=== PATIENT | female | born 1960 | race Caucasian/White ===

== ENCOUNTER 2024-02-22 07:47 | Outpatient (REF) | payer OTHER, SELFPAY ==
--- NOTE | ~2024-02-22 | XR_ITS ---
EXAMINATION: XR BILATERAL KNEES CLINICAL INFORMATION: Pain in bilateral knees. COMPARISON: None available. TECHNIQUE: 3 views of each knee. FINDINGS: RIGHT KNEE: The bones are diffusely demineralized. Marked narrowing of the medial compartment with small marginal osteophytes. Advanced degenerative changes in the patellofemoral joint. Small lateral marginal osteophytes. No significant joint effusion. LEFT KNEE: [id number]-[id number] narrowing of the medial compartment with small marginal osteophytes. Advanced degenerative changes in the patellofemoral joint. Small lateral marginal osteophytes. No significant joint effusion. XR/XR knee LT 3V IMPRESSION: Marked degenerative changes bilateral knees, right greater than left.
--- NOTE | ~2024-02-22 | XR_ITS ---
EXAMINATION: XR BILATERAL KNEES CLINICAL INFORMATION: Pain in bilateral knees. COMPARISON: None available. TECHNIQUE: 3 views of each knee. FINDINGS: RIGHT KNEE: The bones are diffusely demineralized. Marked narrowing of the medial compartment with small marginal osteophytes. Advanced degenerative changes in the patellofemoral joint. Small lateral marginal osteophytes. No significant joint effusion. LEFT KNEE: [id number]-bd-nkshbb narrowing of the medial compartment with small marginal osteophytes. Advanced degenerative changes in the patellofemoral joint. Small lateral marginal osteophytes. No significant joint effusion. XR/XR knee RT 3V IMPRESSION: Marked degenerative changes bilateral knees, right greater than left.
== END 2024-02-22 07:48 | disposition home or self-care (01) ==
LOC: HO.HOSX 07:47
PROVIDERS: Visit Provider Orthopaedic Surgery
DX: M23.8X2 Other internal derangements of left knee (principal); M23.8X1 Other internal derangements of right knee
CPT/HCPCS: 73562; 99202

== ENCOUNTER 2024-02-22 09:44 | Outpatient (AMB) | payer OTHER, SELFPAY ==
--- NOTE | 2024-02-22 10:06 | A.OFFVIS_ITS ---
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 The patient describes her pains as sharp in nature. Her pains have gotten worse over the last 5 years in spite of continued non operative treatments. The patient has had multiple cortisone injections. The most recent set of injections gave her minimal relief. She has also tried Tylenol and anti- inflammatory medicines which gave her no relief. She has done physical therapy exercises which aggravated her pain. Allergies Sulfa (Sulfonamide Antibiotics) Allergy (Mild, Verified 02/22/24 10:12) Rash bactim Allergy (Intermediate, Uncoded 02/22/24 10:12) Rash codine Allergy (Mild, Uncoded 02/22/24 10:12) Nausea and Vomiting Medication List - Last Reconciled 02/23/24 by Isaiah Kellogg MD amlodipine 5 mg PO DAILY hydrochlorothiazide 25 mg PO DAILY sertraline 100 mg PO BID [facility] Surgical History (Updated 02/22/24 @ 10:15 by Mariposa Diaz CMA) H/O myomectomy H/O: hysterectomy History of cholecystectomy Social History (Updated 02/22/24 @ 10:15 by Mariposa Diaz CMA) Patient Tobacco Use Status: Never used Tobacco Current occupational status: employed 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 , 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 Physical Exam Vital Signs: BMI result Body Mass Index 33.3 Const Other: Well-nourished well-developed very friendly female awake alert and oriented x3 in no acute distress Extrem Other: Bilateral lower extremity examination shows good capillary refill, no skin lesions noted, normal sensation light touch Bilateral knee examination shows minimal effusions, palpable crepitus with range of motion, pain with range of motion, no instability Results Reviewed Results Reviewed: X-rays of the patient's bilateral knee show joint space narrowing, subchondral sclerosis, no acute bony abnormalities Assessment & Plan Assessment & Plan (1) Arthritis of left knee: Code(s): M17.12 - Unilateral primary osteoarthritis, left knee Category: Medical (2) Arthritis of right knee: Code(s): M17.11 - Unilateral primary osteoarthritis, right knee Category: Medical Plan Ms. Hyde presents with bilateral knee pains due to degenerative joint disease. I had a lengthy discussion with the patient regarding the treatment options. She wishes to hold off on surgery for as long as possible. I agree with this plan. She has not gotten good relief from cortisone injections in the past. Thus, I will see whether not her insurance company will cover a viscosupplementation injection for both of her knees. I will see her back once the injections are available. Feel free to call me at any time if any questions regarding her orthopedic management arise. Thank you very much for asking me to see this very friendly patient. I spent 22 minutes in reviewing the patient's records and imaging studies, seeing the patient and documenting in the medical record. Orders: Orders XR knee LT 3V 02/22/24 M25.562 - Pain in left knee XR knee RT 3V 02/22/24 M25.561 - Pain in right knee Coding Level of Care Code New Pt Level 2 (66023) Diagnoses Arthritis of left knee M17.12 Arthritis of right knee M17.11
[2024-02-22 10:08] VITALS: BMI 33.3
== END 2024-02-22 10:42 | disposition home or self-care (01) ==
PROVIDERS: PCP Family Medicine; Visit Provider Orthopaedic Surgery
DX: M17.0 Bilateral primary osteoarthritis of knee (principal)
CPT/HCPCS: 99202

== ENCOUNTER 2024-03-07 08:31 | Outpatient (AMB) | payer OTHER, SELFPAY ==
[2024-03-07 08:37] VITALS: BMI 33.3
--- NOTE | 2024-03-07 08:37 | A.OFFVIS_ITS ---
Vital Signs 03/07/24 08:37 Height 5 ft 5 in Weight 200 lb BMI 33.3 Intake Visit Reasons: OV- B/L #1 Euflexxa gel injections Intake Note: Shauna is a 63 year old female who presents with progressively worsening bilateral knee pains. The patient describes her pains as sharp in nature. Her pains have gotten worse over the last 5 years in spite of continued non operative tr eatments. The patient has had multiple cortisone injections. The most recent set of injections gave her minimal relief. She has also tried Tylenol and anti- inflammatory medicines which gave her no relief. She has done physical therapy exercises which aggravated her pain. She wishes hold off on surgery for as long as possible. 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 , 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 Physical Exam Vital Signs: BMI result Body Mass Index 33.3 Const Other: Well-nourished well-developed very friendly female awake alert and oriented x3 in no acute distress Extrem Other: Bilateral lower extremity examination shows good capillary refill, no skin lesions noted, normal sensation light touch Bilateral knee examination shows minimal effusions, palpable crepitus with range of motion, pain with range of motion, no instability Results Reviewed Results Reviewed: X-rays of the patient's bilateral knee show joint space narrowing, subchondral sclerosis, no acute bony abnormalities Assessment & Plan Assessment & Plan (1) Arthritis of left knee: Code(s): M17.12 - Unilateral primary osteoarthritis, left knee Category: Medical (2) Arthritis of right knee: Code(s): M17.11 - Unilateral primary osteoarthritis, right knee Category: Medical Plan Ms. Hyde presents with bilateral knee pains due to degenerative joint disease. I had a lengthy discussion with the patient regarding the treatment options. She wishes to hold off on surgery for as long as possible. I agree with this plan. She has not gotten good relief from cortisone injections in the past. Thus, the risks and benefits of bilateral knee Euflexxa injections were discussed at length with the patient. The patient wished to proceed. She tolerated the injections well. She will continue with her home exercise program. She will follow up next week as scheduled. Feel free to call me at any time should questions regarding her orthopedic management arise. I spent 21 minutes in reviewing the patient's records and imaging studies, seeing the patient and documenting in the medical record. Orders: Orders AMB Joint Injection/Aspiration 03/07/24 M17.12 - Unilateral primary osteoarthritis, left knee AMB Joint Injection/Aspiration 03/07/24 M17.11 - Unilateral primary osteoarthritis, right knee Coding Level of Care Code Est Pt Level 3 (68110) Diagnoses Arthritis of left knee M17.12 Arthritis of right knee M17.11
== END 2024-03-07 09:01 | disposition home or self-care (01) ==
PROVIDERS: PCP Family Medicine; Visit Provider Orthopaedic Surgery
DX: M17.0 Bilateral primary osteoarthritis of knee (principal)
CPT/HCPCS: 20610; 99213

== ENCOUNTER → 2024-03-07 08:31 | Outpatient (BNVA) | payer OTHER, SELFPAY | PROVIDERS: PCP Family Medicine; Visit Provider Orthopaedic Surgery | DX: M17.0 Bilateral primary osteoarthritis of knee (principal) | CPT/HCPCS: 20610; 99212; J7323 ==

== ENCOUNTER 2024-03-15 07:32 | Outpatient (AMB) | payer OTHER, SELFPAY ==
--- NOTE | 2024-03-15 07:41 | MHC.OFFVIS ---
Intake Visit Reasons: OV- B/L #2 Euflexxa gel injections Intake Note: Shauna is a 63 year old female who presents today for her bilateral knee Euflexxa #2. She reports that she has some very mild relief from the 1st set of injections. She continues to take etodolac as needed for her discomfort. 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 , 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 Physical Exam Extrem Other: Bilateral lower extremity examination shows good capillary refill, no skin lesions noted, normal sensation light touch Bilateral knee examination shows minimal effusions, palpable crepitus with range of motion, pain with range of motion, no instability Office Procedures Joint Injection/Drain Joint Injection/Drain Primary Site: left knee Prep: site was prepped using aseptic technique Injected: 20 mg of (Euflexxa viscosupplementation) and 1% plain lidocaine Procedure: The patient tolerated the procedure well Coding 64388 - Large joint Procedure code (CPT) selection complete Joint Injection/Drain Joint Injection/Drain Primary Site: right knee Prep: site was prepped using aseptic technique Injected: 20 mg of (Euflexxa viscosupplementation) and 1% plain lidocaine Procedure: The patient tolerated the procedure well Coding 38515 - Large joint Procedure code (CPT) selection complete Assessment & Plan Assessment & Plan (1) Left knee pain: Code(s): M25.562 - Pain in left knee Category: Medical (2) Arthritis of right knee: Code(s): M17.11 - Unilateral primary osteoarthritis, right knee Category: Medical Plan Ms. Hyde presents with bilateral knee pains due to degenerative joint disease. The risks and benefits of the 2nd set of Euflexxa injections were discussed at length with the patient. The patient wished to proceed. She tolerated the injections well. She will continue with her activity modifications. She will follow-up next week as scheduled. Feel free to call me at any time should questions regarding her orthopedic management arise. Orders: Orders AMB Joint Injection/Aspiration Today M25.562 - Pain in left knee AMB Joint Injection/Aspiration Today M17.11 - Unilateral primary osteoarthritis, right knee Coding Level of Care Code Procedure Only Diagnoses Left knee pain M25.562 Arthritis of right knee M17.11 CPT Codes Coding - 29425 Large joint: 82842 - Large joint ([id number]) Coding - 80174 Large joint: 44257 - Large joint ([id number])
== END 2024-03-15 08:05 | disposition home or self-care (01) ==
PROVIDERS: PCP Family Medicine; Visit Provider Orthopaedic Surgery
DX: M17.0 Bilateral primary osteoarthritis of knee (principal)
CPT/HCPCS: 20610

== ENCOUNTER → 2024-03-15 07:32 | Outpatient (BNVA) | payer OTHER, SELFPAY | PROVIDERS: PCP Family Medicine; Visit Provider Orthopaedic Surgery | DX: M17.0 Bilateral primary osteoarthritis of knee (principal) | CPT/HCPCS: 20610; J7323 ==

== ENCOUNTER 2024-03-21 08:25 | Outpatient (AMB) | payer OTHER, SELFPAY ==
[2024-03-21 08:30] VITALS: BMI 33.3
--- NOTE | 2024-03-21 08:30 | A.OFFVIS_ITS ---
Vital Signs 03/21/24 08:30 Height 5 ft 5 in Weight 200 lb BMI 33.3 Intake Visit Reasons: OV- B/L #3 Euflexxa gel injection Intake Note: Shauna is a 63 year old female who presents for her #3 bilateral knee Euflexxa gel injections. She states that she has gotten mild relief from the prior 2 injections. She denies any fevers or chills. 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 , 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 Physical Exam Vital Signs: BMI result Body Mass Index 33.3 Extrem Other: Bilateral knee examination shows minimal effusions, palpable crepitus with range of motion, pain with range of motion, no instability Office Procedures Joint Injection/Drain Joint Injection/Drain Primary Site: right knee Prep: site was prepped using aseptic technique Injected: 20 mg of (Euflexxa viscosupplementation) and 1% plain lidocaine Procedure: The patient tolerated the procedure well Coding 69702 - Large joint Procedure code (CPT) selection complete Joint Injection/Drain Joint Injection/Drain Primary Site: left knee Prep: site was prepped using aseptic technique Injected: 20 mg of (Euflexxa viscosupplementation) and 1% plain lidocaine Procedure: The patient tolerated the procedure well Coding 33331 - Large joint Procedure code (CPT) selection complete Results Reviewed Results Reviewed: X-rays of the patient's bilateral knee show joint space narrowing, subchondral sclerosis, no acute bony abnormalities Assessment & Plan Assessment & Plan (1) Arthritis of left knee: Code(s): M17.12 - Unilateral primary osteoarthritis, left knee Category: Medical (2) Arthritis of right knee: Code(s): M17.11 - Unilateral primary osteoarthritis, right knee Category: Medical Plan Ms. Hyde presents with bilateral knee pains due to degenerative joint disease. The risks and benefits of a 3rd set of Euflexxa injections were discussed at length with the patient. The patient wished to proceed. She tolerated the injections well. She will continue with her home exercise program. If she does not get lasting relief from the viscosupplementation injection she is considering undergoing total knee replacement surgery later this year. She will contact my office to pick a surgery date if she chooses to do so. Otherwise she will follow up on an as-needed basis. Feel free to call me at any time should questions regarding her orthopedic management arise. I spent 20 minutes in reviewing the patient's records and imaging studies, seeing the patient and documenting in the medical record. Orders: Orders AMB Joint Injection/Aspiration Today M17.11 - Unilateral primary osteoarthritis, right knee AMB Joint Injection/Aspiration Today M17.12 - Unilateral primary osteoarthritis, left knee Coding Level of Care Code Procedure Only Diagnoses Arthritis of left knee M17.12 Arthritis of right knee M17.11 CPT Codes Coding - 75198 Large joint: 88613 - Large joint ([id number]) Coding - 64935 Large joint: 93676 - Large joint ([id number])
== END 2024-03-21 08:59 | disposition home or self-care (01) ==
PROVIDERS: PCP Family Medicine; Visit Provider Orthopaedic Surgery
DX: M17.0 Bilateral primary osteoarthritis of knee (principal)
CPT/HCPCS: 20610

== ENCOUNTER → 2024-03-21 08:25 | Outpatient (BNVA) | payer OTHER, SELFPAY | PROVIDERS: PCP Family Medicine; Visit Provider Orthopaedic Surgery | DX: M17.0 Bilateral primary osteoarthritis of knee (principal) | CPT/HCPCS: 20610; J7323 ==

== ENCOUNTER 2024-06-28 07:41 | Outpatient (AMB) | payer OTHER, SELFPAY ==
[2024-06-28 07:46] VITALS: BMI 33.3
--- NOTE | 2024-06-28 07:46 | A.OFFVIS_ITS ---
Vital Signs 06/28/24 07:46 Height 5 ft 5 in Weight 200 lb BMI 33.3 Intake Visit Reasons: OV- B/L knee cortisone inj Intake Note: Ms. Hyde is a 63-year-old female who presents with complaints of progressively worsening bilateral knee pains. She describes her pains as sharp and severe in nature, /10. She has gotten temporary relief from cortisone injections in the past. She did have a series of Euflexxa injections given into both of her knees earlier this year. She got minimal relief from those injections. She has tried Tylenol and anti-inflammatory medicines which gave her only mild relief. The patient has difficulty walking even short distances because of her pains. At this point her bilateral knee pains are interfering with her activities of daily living and her ability to sleep well through the night. 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 , 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 Physical Exam Vital Signs: BMI result Body Mass Index 33.3 Const Other: Well-nourished well-developed very friendly female awake alert and oriented x3 in no acute distress Extrem Other: Bilateral lower extremity examination shows good capillary refill, no skin lesions noted, normal sensation light touch Bilateral knee examination shows minimal effusions, palpable crepitus with range of motion, pain with range of motion, range of motion from -3 degrees to 115 degrees, no instability Office Procedures Joint Injection/Aspiration Joint Injection/Aspiration Primary Site: left knee Prep: site was prepped using aseptic technique Injected: 40 mg of, DepoMedrol and 1% plain lidocaine Procedure: The patient tolerated the procedure well Coding 74040 - Large joint Procedure code (CPT) selection complete Joint Injection/Aspiration Joint Injection/Aspiration Primary Site: right knee Prep: site was prepped using aseptic technique Injected: 40 mg of, DepoMedrol and 1% plain lidocaine Procedure: The patient tolerated the procedure well Coding 52412 - Large joint Procedure code (CPT) selection complete Results Reviewed Results Reviewed: X-rays of the patient's bilateral knees taken previously show end-stage degenerative joint disease with grade 4 [id number] arthritis, subchondral sclerosis, osteophyte formation, no acute bony abnormalities Assessment & Plan Assessment & Plan (1) Arthritis of left knee: Code(s): M17.12 - Unilateral primary osteoarthritis, left knee Category: Medical (2) Arthritis of right knee: Code(s): M17.11 - Unilateral primary osteoarthritis, right knee Category: Medical Plan Ms. Hyde presents with bilateral knee pains due to degenerative joint disease. I had a lengthy discussion with the patient regarding the treatment options. The risks and benefits of bilateral knee cortisone injections were discussed at length with the patient. The patient wished to proceed. She tolerated the injections well. She will continue with her home exercise program. If she does not get lasting relief from the cortisone injection therapy she is considering undergoing total knee replacement surgery later this year. She will contact my office to pick a surgery date if she chooses to do so. Otherwise she will follow up on an as-needed basis. Feel free to call me at any time should questions regarding her orthopedic management arise. I spent 20 minutes in reviewing the patient's records and imaging studies, seeing the patient and documenting in the medical record. Orders: Orders AMB Joint Injection/Aspiration Today M17.11 - Unilateral primary osteoarthritis, right knee AMB Joint Injection/Aspiration Today M17.12 - Unilateral primary osteoarthritis, left knee Coding Level of Care Code Est Pt Level 3 (43146) Diagnoses Arthritis of left knee M17.12 Arthritis of right knee M17.11 CPT Codes Coding - 60526 Large joint: 76116 - Large joint ([id number]) Coding - 42513 Large joint: 28805 - Large joint ([id number])
== END 2024-06-28 08:12 | disposition home or self-care (01) ==
PROVIDERS: PCP Family Medicine; Visit Provider Orthopaedic Surgery
DX: M17.0 Bilateral primary osteoarthritis of knee (principal)
CPT/HCPCS: 20610; 99213

== ENCOUNTER → 2024-06-28 07:41 | Outpatient (BNVA) | payer OTHER, SELFPAY | PROVIDERS: PCP Family Medicine; Visit Provider Orthopaedic Surgery | DX: M17.0 Bilateral primary osteoarthritis of knee (principal) | CPT/HCPCS: 20610; 99212; J1010 ==

== ENCOUNTER 2025-03-13 09:48 | Outpatient (REF) | payer OTHER, SELFPAY ==
--- NOTE | ~2025-03-13 | XR_ITS ---
EXAMINATION: XR KNEE 3 VIEWS BILATERAL HISTORY: Bilateral knee pain COMPARISON: Comparison is made with the prior examination dated 02/22/2024. FINDINGS: Six views of the bilateral knees are submitted. Osseous mineralization is normal. There is no fracture or dislocation. Again seen is severe osteoarthritis of the medial compartments of both knees, right greater than left, with joint space narrowing and osteophyte formation. There is moderate osteoarthritis of the bilateral lateral and patellofemoral compartments. The soft tissues are unremarkable. There is no joint effusion. XR/XR Knee Devin 3V IMPRESSION: Osteoarthritis of the bilateral knees as described. Electronically signed by: Jerald Simmons MD 03/14/2025 08:08 AM EDT
--- OUTSIDE RECORDS SUMMARY | 2025-03-14 10:30 | XMS_ITS | Clinical Summary ---
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 Worker Name Role Phone Allison Tan MD Primary Care Provider Social History Tobacco Use Types Packs/Day Years Used Date Smoking Tobacco: Never Assessed Comments Unknown Sex and Gender Information Value Date Recorded Sex Assigned at Not on file Legal Sex Female 11:03 AM EDT Gender Identity Not on file Sexual Orientation Not on file Obstetrics History Plan of Treatment Upcoming Encounters Date Type Department Care Team ([facility] Contact Info) Description 04/24/2025 11:00 AM EDT Appointment Radiology Department [address] [id number] Health Maintenance Due Date Last Done Comments DTaP,Tdap,and Td Vaccines (1 - Tdap) 1979 Cervical Cancer Screening: P ap Smear 1981 Pneumococcal Vaccine: 50+ Years (1 of 1 - PCV) 2010 Zoster Vaccines (1 of 2) 2010 Colorectal Cancer Screening: Colonoscopy 05/26/2024 Depression Screening 05/26/2024 HIV Screening 05/26/2024 Hepatitis C Screening 05/26/2024 Social Influencers of Health Screening 05/26/2024 COVID-19 Vaccine ( - 2023-2 5 season) 2024 Influenza Vaccine (Season Ended) 2025 Breast Cancer Screening 04/11/2026 04/11/20, 04/11/2024 RSV Immunization Adult Patients (1 - 1-dose 75+ series) 2035 HIB Vaccines Aged Out No longer eligi ble based on patient's age to complete this topic HPV Vaccines Aged Out No longer eligi ble based on patient's age to complete this topic Hepatitis A Vaccines Aged Out No long er eligible based on patient's age to complete this topic Hepatitis B Vaccines Aged Out No long er eligible based on patient's age to complete this topic IPV Vaccines Aged Out No longer eligi ble based on patient's age to complete this topic MMR Vaccines Aged Out No longer eligi ble based on patient's age to complete this topic Meningococcal ACWY Vaccine Aged Out N o longer eligible based on patient's age to complete this topic Meningococcal B Vaccine Aged Out No l onger eligible based on patient's age to complete this topic Pneumococcal Vaccine: Pediatrics (0 to 5 Years) and At-Risk Patients (6 to 64 Years) Aged Out No longer eligible b ased on patient's age to complete this topic RSV Immunization Patients Under 20 months Aged Out No longer eligible b ased on patient's age to complete this topic Varicella Vaccines Aged Out No longer eligible based on patient's age to complete this topic Procedures Procedure Name Priority Date/Time Associated Diagnosis Comments SCREENING MAMMOGRAPHY BI 2-VIEW BREAST INC CAD Routine 04/11/2024 11:10 AM EDT Encounter for other screening for malignant neoplasm of breast from Last 3 Months or Most Recently Relevant to Health Maintenance Results * SCREENING MAMMOGRAPHY BI 2-VIEW BREAST INC CAD (04/11/2024 11:10 AM EDT) Anatomical Region Laterality Modality Radiographic Renee ging 01/31/2024 6:22 PM EDT Narrative 04/11/2024 5:24 PM EDT This is a summary report. The complete report is available in the patient's medical record. If you cannot access the medical record, please contact the sending organization for a detailed fax or copy. Full field digital screening 2D C views and tomosynthesis mammography, reviewed with CAD and compared to previous. The breasts are composed of fatty and fibroglandular tissue. ??No suspicious mass, architectural distortion or suspicious calcifications are identified. IMPRESSION: : No mammographic evidence of malignancy. BIRADS 1-Negative; N. 5 year breast cancer risk assessment 1.6 % Lifetime breast cancer risk assessment 6.8 % Breast cancer risk category Low (<15%) Procedure Note Aarti Chung MD - 08/16/2024 This is a summary report. The complete report is available in thepatient's medical record. If you cannot access the medical record, pleasecontact the sending organization for a detailed fax or copy. Full field digital screening 2D C views and tomosynthesis mammography,reviewed with CAD and compared to previous. The breasts are composed offatty and fibroglandular tissue. No suspicious mass, architecturaldistortion or suspicious calcifications are identified. IMPRESSION: : No mammographic evidence of malignancy. BIRADS 1-Negative; N. 5 year breast cancer risk assessment 1.6 % Lifetime breast cancer risk assessment 6.8 % Breast cancer risk category Low (<15%) us Allison Tan MD IMG XR PROCEDURES Final Res ult from Last 3 Months or Most Recently Relevant to Health Maintenance Care Teams Drapery Worker Relationship Specialty Start Date End Date Allison Tan MD PCP - General 11/09/23
== END 2025-03-13 09:49 | disposition home or self-care (01) ==
LOC: HO.HOSX 09:48
PROVIDERS: Visit Provider Orthopaedic Surgery
DX: M17.11 Unilateral primary osteoarthritis, right knee (principal); M17.12 Unilateral primary osteoarthritis, left knee
CPT/HCPCS: 20610; 73562; 99212; J1010; J2003

== ENCOUNTER 2025-03-13 14:19 | Outpatient (AMB) | payer OTHER, SELFPAY ==
[2025-03-13 14:21] VITALS: BMI 33.3
--- NOTE | 2025-03-13 14:21 | A.OFFVIS_ITS ---
Vital Signs 03/13/25 14:21 Height 5 ft 5 in Weight 200 lb BMI 33.3 Intake Visit Reasons: Bilateral knee pains Intake Note: Shauna is a 64 year old female who presents with complaints of progressively worsening bilateral knee pains. She describes her pains as sharp in nature. She has had injections in the past which gave her only temporary relief. She has also tried Tylenol which gives her minimal relief. She wishes to hold off on total knee replacement surgery for now. At this point her bilateral knee pains are interfering with her activities of daily living and her ability to sleep well through the night. The patient has difficulty walking even short distances because of her pains. At this point her right and left knee pains are very similar. 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 , 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 Physical Exam Vital Signs: BMI result Body Mass Index 33.3 Const Other: Well-nourished well-developed very friendly female awake alert and oriented x3 in no acute distress Extrem Other: Bilateral knee examination shows minimal effusions, palpable crepitus with range of motion, pain with range of motion, no instability Office Procedures AMB Joint Injection/Aspiration Joint Injection/Aspiration Primary Site: right knee Prep: site was prepped using aseptic technique Injected: 40 mg of, DepoMedrol and 1% plain lidocaine Procedure: The patient tolerated the procedure well Coding 95474 - Large joint Procedure code (CPT) selection complete AMB Joint Injection/Aspiration Joint Injection/Aspiration Primary Site: left knee Prep: site was prepped using aseptic technique Injected: 40 mg of, DepoMedrol and 1% plain lidocaine Procedure: The patient tolerated the procedure well Coding - Large joint Procedure code (CPT) selection complete Results Reviewed Results Reviewed: X-rays of the patient's bilateral knee show severe joint space narrowing, subchondral sclerosis, osteophyte formation, no acute bony abnormalities Assessment & Plan Assessment & Plan (1) Arthritis of left knee: Code(s): M17.12 - Unilateral primary osteoarthritis, left knee Category: Medical (2) Arthritis of right knee: Code(s): M17.11 - Unilateral primary osteoarthritis, right knee Category: Medical Plan Ms. Hyde presents with bilateral knee pains due to degenerative joint disease. The risks and benefits of bilateral knee cortisone injections were discussed at length with the patient. The patient wished to proceed. She tolerated the injections well. She will continue with her home exercise program. If she does not get lasting relief from the cortisone injection she is considering undergoing total knee replacement surgery later this year. She will contact my office to pick a surgery date if she chooses to do so. Otherwise she will follow up on an as-needed basis. I did give her a prescription for Celebrex to help with her pain in the meantime. Feel free to call me at any time should questions regarding her orthopedic management arise. I spent 20 minutes in reviewing the patient's records and imaging studies, seeing the patient and documenting in the medical record. Orders: Orders XR Knee Devin 3V 03/13/25 M17.11 - Unilateral primary osteoarthritis, right knee, M17.12 - Unilateral primary osteoarthritis, left knee AMB Joint Injection/Aspiration 03/13/25 M17.12 - Unilateral primary osteoarthritis, left knee AMB Joint Injection/Aspiration 03/13/25 M17.11 - Unilateral primary osteoarthritis, right knee Medications: New celecoxib (Celebrex) 200 mg PO DAILY PRN 30 caps 3RF pain Coding Level of Care Code Est Pt Level 3 (68729) Complex EM visit Add On G2211 Diagnoses Arthritis of left knee M17.12 Arthritis of right knee M17.11 CPT Codes Coding - Large joint: 89307 - Large joint ([id number]) Coding - 69217 Large joint: 97615 - Large joint ([id number])
== END 2025-03-13 15:02 | disposition home or self-care (01) ==
LOC: HO.HOS 14:19
PROVIDERS: PCP Family Medicine; Visit Provider Orthopaedic Surgery
DX: M17.0 Bilateral primary osteoarthritis of knee (principal)
CPT/HCPCS: 20610; 99214

== ENCOUNTER → 2025-03-13 14:25 | Outpatient (BNV) | payer OTHER, SELFPAY | PROVIDERS: Visit Provider Radiology Diagnostic Radiology | DX: M17.0 Bilateral primary osteoarthritis of knee (principal) | CPT/HCPCS: 73562 ==